=== PATIENT | female | born 1950 | race Caucasian/White ===

== ENCOUNTER 2025-01-23 12:21 | Outpatient (AMB) | payer MEDICARE, SELFPAY ==
--- NOTE | 2025-01-23 12:29 | MHC.OFFVIS ---
Intake Visit Reasons: 6m PD Allergies azithromycin (AZITHROMYCIN) Allergy (Unknown, Unverified 12/21/19 19:30) DIARRHEA penicillin G Allergy (Unknown, Verified 01/19/25 09:30) Unknown Penicillins (PENICILLINS) Allergy (Unknown, Unverified 12/21/19 19:30) RASH prochlorperazine (PROCHLORPERAZINE) Allergy (Unknown, Unverified 12/21/19 19:30) ANAPHYLAXIS Sulfa (Sulfonamide Antibiotics) (SULFA (SULFONAMIDE ANTIBIOTICS)) Allergy (Unknown, Unverified 12/21/19 19:30) HIVES sulfur Allergy (Unknown, Verified 01/19/25 09:30) Unknown HPI Comments Details: 75 yo woman with mild parkinsonism with mild bradykinesia, mildly spastic looking gait, and mild cerebellar type hand tremor. She was doing okay. Sleep was all right. She was using a cane for walking. Sometime she has a problem threading a needle because of hand tremor. Mood was okay. Memory was old right. [facility] Medical History (Updated 01/23/25 @ 12:31 by Marcia Gamez MD) Anxiety and depression Family History (Updated 01/19/25 @ 09:30 by KATHY Linder) Father Dementia Mother Cancer Brother Cancer Review of Systems Narrative Constitutional:?No fever, chills, fatigue, weight loss, or night sweats. HEENT:?No headache, vision changes, hearing loss, nasal congestion, sore throat. Psychiatric:?No anxiety, depression, mood swings, sleep disturbance, or hallucinations. Endocrine:?No heat/cold intolerance, polydipsia, polyuria, or hair/skin changes. Hematologic/Lymphatic:?No easy bruising, bleeding, or lymphadenopathy. Integumentary (Skin):?No rash, lesions, itching, or color changes. ? Physical Exam Neuro Other: Mental Status: Alert and oriented to person, place, and time. Normal attention. Normal spontaneous speech, fluency, and comprehension. No obvious issues with mood and memory. Affect is appropriate. Cranial Nerves: CN II: Visual sy full to confrontation, visual acuity intact. CN III, IV, : Pupils equal, round, reactive to light and accommodation. Extraocular movements are normal. CN V: Facial sensation is normal. CN VII: Facial movements symmetrical. CN VIII: Hearing intact to bedside conversation is normal. CN IX, X: Palate elevates symmetrically. CN XI: Shoulder shrug and head turn symmetrical. CN XII: Tongue midline without atrophy or fasciculations. Extrapyramidal: Full facial expressions and blinking. No rigidity. Movements are appropriate with mild bilateral hand, right more than left postural tremor. Speech: Normal; no dysarthria or tremor. Assessment & Plan Assessment & Plan (1) Parkinson disease: Comment: MRI brain WWO at [place] in October 2022: mild cortical atrophy, one right sylvian area WM small hyperintensity, probably ischemic CT brain WO at [facility] in October 2022: [place] CTA brain and neck at [facility] in October 2022: Beaded appearance b/l MCAs and ICAs. Code(s): G20 - Parkinson's disease Category: Medical Plan Impression: 1. Mild Parkinson's disease 2. Microvascular ischemic changes of brain Recommendations: 1. Carbidopa/levodopa 25/250 at morning and noontime 2. Baby aspirin daily with blood pressure control and statin 3. Regular walking for a mile or 2 every day. Coding Level of Care Code Est Pt Level 4 (89566) Diagnoses Parkinson disease G20
--- OUTSIDE RECORDS SUMMARY | 2025-01-23 15:53 | XMS_ITS | Data Portability ---
Author Organization [place] [facility] [place] Address [address] [place] [address] Care Team Providers Care Hitting Coach Name Role Phone GEOVANY RGAY Primary Care Provider Assessment Encounter Date Assessment Date Assessment LastModified by Organization Details LastModified Time 08/26/2022 08/26/2022 This is a very pleasant 72-year-old female here for her 1 year follow-up after undergoing a right total knee arthroplasty by Dr. Rodriguez on August 11, 2021. She is doing exceptionally well clinically. She will do her stretching exercise regimen on a regular basis. I did refill her amoxicillin. She understands that she can discontinue this at the 2-year anniversary however if her dentist wishes to continue this they will prescribe going forward. We will do a 5-year recall if she has any questions or concerns she should contact my office. The patient agrees with the above-noted plan. Indirect care and treatment in conjunction with Dr. Parker Additional treatment plan discussed with the patient in detail included the following; - Provider focused nonsteroidal anti-inflammator y regimen (discussed were the pros, cons, benefits and risks as well as any black box warnings) in patients over 60 years old they should be very cautious in taking these medications due to potential decreased kidney function and or elevated blood pressure. - Analgesic pain medication for pain suppression (discussed were the pros, cons, benefits and risks as well as any black box warnings) - The use of topical pain relieving medication were discussed - The use of ice to decrease inflammation and pain - The use of assistive ambulatory devices for ambulation and fall prevention - Formal specific guided physical therapy program I reviewed my findings at length with the patient today. We discussed the nature and etiology of this problem along with current treatment options. We discussed the expected course and outcomes and what to expect. We also discussed risks and benefits. All of their questions were answered today, and there was exhibited understanding and comprehension of all that was discussed. Time Spent: 10 minutes were spent reviewing previous imaging and charting. 10 minutes were spent obtaining patient history. 5 minutes were spent on physical exam. 5minutes were spent explaining diagnosis and assessment. Today's documentation was made using voice recognition software. This note may contain grammatical errors secondary to the software. [email or web address] Not available 08/26/2022 13:22:33 Plan of Treatment Reminders Order Date Submit Date Provider Last Modified By Organization Details Last Modified Time Details Appointments None record ed. Lab None record ed. Referral None record ed. Procedures None record ed. Surgeries None record ed. Imaging None record ed. Medication Orders None record ed. Patient TargetsNo targets recorded. Patient InstructionsNo instructions recorded. Reason for Referral None Reported. Problems Name Problem SNOMED Code Status Onset Date Resolution Date Notes Provider Name and Address Organization Details Recorded Time Stiffness of right knee 31457923555785 0 Active 2022 GISELL CABRALES PA-C [address] [facility] [address], [facility] [place], [address] [facility] [place], [facility] 3 13:22:41 Problem Notes None recorded. Procedures Surgical History Date Name Laterality Status Provider Name and Address Organization Details Recorded Time total replacement of right knee joint completed Hillary Rowdy [facility] [place] 08/26/2022 13:02:17 Imaging Results None recorded. Procedure Notes None recorded. Medical Equipment None Reported. Allergies Allergen ID Allergen Name Allergen Category Reaction Reaction Severity Criticality Documentation Date Start Date Code Code System Note Provider Name and Address Organization Details Recorded Time 990072 prochlorp erazine medicatio n Not available Not available Not available 12/26/20242021 8704 RxNorm Other react ion(s ): Anaph ylaxi s to subst ance Not Available Former[facility] 5 01:31:47 287002 azithromy marni medicatio n Not available Not available Not available 12/26/20242020 54298 RxNorm Not Available Former[facility] 5 01:31:47 974166 prochlorp erazine edisylate medicatio n Not available Not available Not available 12/26/20242020 8705 Rx[facility] Not Available [facility] 5 01:31:48 4417 Compazine medicatio n Not available Not available Not available 08/26/2022 17402 6 RxNorm [place], [place] [facility] [place], [facility] 3 13:00:32 4418 Substance with sulfonami de structure and antibacte rial mechanism of action (substanc e) medicatio n Not available Not available Not available 08/26/2022 04070 8003 SNOMED Hillary [place], [place] [facility] [place], [facility] 3 13:00:37 Medications Name Sig Start Date Stop Date Status Note LastModified by Organization Details LastModified Time fluoxetine 40 mg capsule active Not Available Not Available Not Available amoxicillin 500 mg capsule active Not Available Not Available Not Available trazodone 50 mg tablet active Not Available Not Available Not Available ondansetron HCl 4 mg tablet Take 1 tablet (4 mg total) by mouth daily as needed for nausea. 09/04 completed Not Available Not Available Not Available aspirin 81 mg tablet,christiano yed release Take 1 tablet twice daily 2021 active Not Available Not Available Not Avai lable amoxicillin 500 mg tablet Take 4 tabs 1 hour prior to dental procedure 2022 active Not Available Not Available Not Avai lable simvastatin 40 mg tablet active Not Available Not Available Not Available hydromorpho ne 2 mg tablet 09/03 completed Not Available Not Available Not Available pantoprazol e 40 mg tablet,christiano yed release active Not Available Not Available Not Available albuterol sulfate HFA 90 mcg/actuati on aerosol inhaler Inhale 2 puffs into the lungs. active Not Available Not Available No t Available oxycodone 5 mg tablet 1-2 tabs p.o. every 4 to 6 hours as needed for pain. May fill for lesser quantity 2021 active Not Available Not Available Not Avai lable bupropion HCl XL 150 mg 24 hr tablet, extended release active Not Available Not Available Not Available Vitals Date Recorded Body height Body mass index (BMI) Body weight Provider Name and Address Organization Details Last Updated DateTime 08/26/2022 160.02 cm 23.7 kg/m2 86807.[address] [place] [facility] [place] 08/26/2022 13:00:50 Social History None recorded. Functional Status Question Answer Note LastModified by Organizat ion Details LastModified Time Do you use any illicit or recreational drugs? No Information not available 08/26/2022 Do you or have you ever used any other forms of tobacco or nicotine? No Information not available 08/26/2022 What is your level of alcohol consumption? None Information not available 08/26/2022 Mental Status None recorded. Family History Relationship Description Onset Age of this Age Resolved Age Notes LastModified by Organization Details LastModified Time Father Hypertensive disorder Not available 2022 13:01:34 Father Heart disease Not available 2022 13:01:45 Mother Hypertensive disorder Not available 2022 13:01:35 Mother Heart disease Not available 2022 13:01:45 Mother Family history of malignant neoplasm Not available 2022 13:01:53 Mother Blood coagulation disorder Not available 2022 13:02:01 Medical History Condition Response Asthma Y Osteoporosis Y Gynecological HistoryNo gynecological history recorded. Obstetrics History GPAL:G 0 P 0 0 0 0 Past Encounters Encounter ID Performer Location Encounter Start Date Encounter Closed Date Diagnosis/Indication Diagnosis SNOMED-CT Code Diagnosis ICD10 Code Diagnosis IMO Codes Diagnosis Note [id number] GRACIE GOSS [facility] [address] [facility] [address] [place] [address] 08/26/2022 12:52:02 08/26/2022 13:18:00 Stiffness of right knee [id number] 71535 M25.661 Health Concerns Section Related Observation LastModified by Organization Detai ls LastModified Time None Recorded Concern Status LastModified by Organization Details LastModified Time None Recorded Advance Directives Directive None Recorded Payers Insurance Date Sequence Insurance Name Policy Number Policy Conway Covered Member ID Conway Member ID Guarantor Name 08/26/2022 1 [facility] - MEDICARE ADVANTAGE PLAN (MEDICARE REPLACEMENT HMO) [id number] Isamar Leonardo [id number] Isamar Malissa Notes Date Note Type Note Provider Name and Address Organization Details Recorded Time 08/26/2022 text/html This is a very pleasant 72-year-old female here for her 1 year follow-up after undergoing a right total knee arthroplasty by Dr. Rodriguez on August 11, 2021. Patient states she is doing exceptionally well occasional stiffness otherwise no complaints. She takes her antibiotic prophylaxis prior to dental work which is amoxicillin. She does require refill. Denies fevers denies chills denies flulike symptoms denies cough denies shortness of breath. She recently had updated x-rays on 01/13/2022 GISELL CABRALES PA-C [address] [place] [address],[facility] [address], [place], [address], [place] [facility] [place], [facility] 08/26/2022 13:23:30 OBGyn Episode No OBEpisode recorded.
--- OUTSIDE RECORDS SUMMARY | 2025-01-23 15:53 | XMS_ITS | Clinical Summary ---
Author Organization [facility] Address [address] [place] [address] Phone Care Team Providers Care Shift Nurse Manager Name Role Phone Unavailable Primary Care Provider Unavailabl e Social History Tobacco Use Types Packs/Day Years Used Date Smoking Tobacco: Never Assessed Education Answer Date Recorded Are you interested in more education? Not on ree e 08/01/2022 Are you concerned about learning? Not on file 08/01/2022 No 08/01/2022 No 08/01/2022 Digital Access Answer Date Recorded No 09/01/2022 No 09/01/2022 Reliable internet access at home? Not on file 09/01/2022 Device with a working camera? Not on file Comments Unknown Sex and Gender Information Value Date Recorded Sex Assigned at Not on file Legal Sex Female 12:06 PM EDT Gender Identity Not on file Sexual Orientation Not on file Plan of Treatment Not on file Medical Devices Not on file Additional Source Comments The information contained in this document represents components of the legal health record. It is not the complete legal health record.[facility]
--- OUTSIDE RECORDS SUMMARY | 2025-01-23 15:53 | XMS_ITS | Clinical Summary ---
Author Organization [facility] Address [address] [place] [address] Care Team Providers Care Chemotherapist Name Role Phone María Barkley MD Primary Care Provider [phone] Allergies Active Allergy Reactions Criticality Noted Date Comments Azithromycin 09/19/2020 Prochlorperazine 06/10/2021 Other reaction(s): Anaphylaxis to substance Prochlorperazine Edisylate Sulfa Antibiotics 06/10/2021 Medications Medication Sig Dispensed Refills Start Date End Date Status FLUoxetine (PROzac) 40 MG capsule 0 04/24/2021 Active buPROPion (WELLBUTRIN XL) 150 MG 24 hr tablet 0 04/22/2021 Active pantoprazole (PROTONIX) 40 MG tablet 0 03/18/2021 Active simvastatin (ZOCOR) tablet 40 mg 0 04/30/2021 Active traZODone (DESYREL) 50 MG tablet 0 04/30/2021 Active Acetaminophen (TYLENOL PO) Take by mouth. 0 Active Ibuprofen (ADVIL PO) Take by mouth. 0 Active amoxicillin (AMOXIL) 500 MG tablet Take 4 tabs 1 hour prior to dental appointment 20 tablet 3 08/26/2021 Active aspirin EC 81 MG tablet Take 1 tablet twice daily 60 tablet 1 08/26/2021 Active oxyCODONE (ROXICODONE) 5 MG immediate release tablet 1-2 tabs p.o. every 4 to 6 hours as needed for pain. May fill for lesser quantity 40 tablet 0 09/03/2021 Active albuterol 108 (90 Base) MCG/ACT inhaler Inhale 2 puffs into the lungs. 0 Active Family History Medical History Relation Name Comments Heart disease Father Hypertension Father Cancer Mother Clotting disorder Mother Heart disease Mother Hypertension Mother Relation Name Status Comments Father Mother Social History Tobacco Use Types Packs/Day Years Used Date Smoking Tobacco: Never Smokeless Tobacco: Never Alcohol Use Standard Drinks/Week Comments Never 0 (1 standard drink = 0.6 oz pur e alcohol) Sex and Gender Information Value Date Recorded Sex Assigned at Not on file Gender Identity Not on file Sexual Orientation Not on file Job Start Date Occupation Industry Not on file Not on file Not on file Last Filed Vital Signs Vital Sign Reading Time Taken Comments Blood Pressure - - Pulse - - Temperature - - Respiratory Rate - - Oxygen Saturation - - Inhaled Oxygen Concentration - - Weight 60.8 kg (134 lb) 07/09/2021 9:10 AM EDT Height 160 cm (5' 3 ) 07/09/2021 9:10 AM EDT Body Mass Index 23.74 07/09/2021 9:10 AM EDT Plan of Treatment Health Maintenance Due Date Last Done Comments Hepatitis C Screening 1950 Depression Screening 1962 Preventative Health Evaluation 01/07/1968 Colon Cancer Screening (Colonoscopy) 1995 Shingrix-Zoster Vaccine (1 o f 2) 01/07/2000 Fall Risk Assessment 2015 Osteoporosis Screening (DEXA Scan) 2015 Pneumococcal Vaccine (1 of 1 - PCV) 2015 COVID-19 Vaccine (3 - 2024-2 6 season) 2024 07/22/2020, 06/29/2020 Influenza Vaccine (#1) 2024 RSV Adult > 60+ Yrs or (1 - 1-dose 75+ series) 2025 DTap / Tdap / Td (2 - Td or Tdap) 02/03/2032 02/02/2022 Hepatitis B Vaccines Aged Out No long er eligible based on patient's age to complete this topic RSV Ped < 20 months Aged Out No longe r eligible based on patient's age to complete this topic Care Teams Chemotherapist Relationship Specialty Start Date End Date María Barkley MD [address] [id number] PCP - General Internal Medicine 06/03/21
--- OUTSIDE RECORDS SUMMARY | 2025-01-23 15:53 | XMS_ITS ---
Author Name [facility] Organization Unknown History of Medication Use Medication Directions Dispensed Refills Start Date End Date Stat us amoxicillin 500 mg tablet Take 4 tabs 1 hour prior to dental procedure 08/26/2022 active albuterol sulfate HFA 90 mcg/actuation aerosol inhaler active amoxicillin 500 mg capsule active bupropion HCl XL 150 mg 24 hr tablet, extended release active fluoxetine 40 mg capsule active ondansetron HCl 4 mg tablet active oxycodone 5 mg tablet ac tive pantoprazole 40 mg tablet,delayed release active simvastatin 40 mg tablet active trazodone 50 mg tablet active Allergies Allergen Reaction Severity Comment Documented Date Source Statu s COMPAZINE ENS_AONECT SULFA (SULFONAMIDE ANTIBIOTICS) ENS_AONECT Problems Problem Status Onset Date Problem Type Date of Resoluti on Source Stiffness of right knee active 2022-08-26 ProblemAct ENS_AONECT Encounters Encounter Type Encounter Reason Primary Diagnosis Location Date Ambulatory [facility] 08/26/2022 Ambulatory [facility] 08/26/2022 Ambulatory [facility] [place] 08/26/2022 Ambulatory [facility] [place] 08/24/2022 Ambulatory [facility] [place] 08/24/2022 Care Team Organization Name Specialty Phone Email Start Date End Da te [facility] 02/10/2022 11/22/19
== END 2025-01-23 12:39 | disposition home or self-care (01) ==
PROVIDERS: PCP Internal Medicine; Visit Provider Psychiatry & Neurology Neurology
DX: G20.B1 Parkinson's disease with dyskinesia, without mention of fluctuations (principal)
CPT/HCPCS: 99214

== ENCOUNTER → 2025-01-23 12:21 | Outpatient (BNVA) | payer MEDICARE, SELFPAY | PROVIDERS: PCP Internal Medicine; Visit Provider Psychiatry & Neurology Neurology | DX: G20.A1 Parkinson's disease without dyskinesia, without mention of fluctuations (principal); I67.9 Cerebrovascular disease, unspecified | CPT/HCPCS: 99212 ==